=== PATIENT | female | born 2000 | race Caucasian/White ===

== ENCOUNTER → 2020-10-11 | Day surgery (SDC) | payer OTHER ==
[~2020-10-11] MED LIST: HYDROCODONE-AC1 EACH PO; IBUPROFEN600 MG PO; RIZATRIPTAN PO; YASMIN 28 TABL1 EACH PO
[2020-10-11 07:07] LABS: HEMOGLOBIN 14.5 gm/dl (12.3-15.3); RED BLOOD COUNT 5.02 M/UL (4.00-5.10); WHITE BLOOD COUNT 7.1 K/UL (4.5-11.0)
== END | disposition home or self-care (01) ==
LOC: OR 06:38
PROVIDERS: Obstetrics & Gynecology
PROC: 0UBG0ZZ Excision of Vagina, Open Approach (ICD-10-PCS; principal; 2020-10-11 07:30)
DX: N89.8 Other specified noninflammatory disorders of vagina (principal); G43.909 Migraine, unspecified, not intractable, without status migrainosus; Z20.822 Contact with and (suspected) exposure to COVID-19; Z79.899 Other long term (current) drug therapy
CPT/HCPCS: 36415; 81001; 84703; 85025; J1100; J2001; J2250; J2405; J2704; J2765; J3010; J7120